=== PATIENT | female | born 1950 | race Caucasian/White ===

== ENCOUNTER 2017-04-20 19:40 | Observation (INO) | payer MEDICARE ==
[2017-04-20] MEDS ORDERED: Nitroglycerin 0.4 MG TAB (25 Tab Bottle) ONE (20:06)
[2017-04-20 20:28] LABS: #Basophils 0.1 thou/uL (0.0-0.2); #Eosinphils 0.2 thou/uL (0.0-0.7); #Lymphocytes 1.8 thou/uL (1.20-3.40); #Monocytes 0.5 thou/uL (0.11-0.59); %Basophils 1.7 % (0.0-1.0); %Eosinophils 4.6 % (0.0-10.0); %Lymphocytes 39.1 % (21.0-51.0); %Monocytes 10.7 % (0.0-10.0); Hematocrit 37.1 % (36.0-47.0); Mean Platelet Volume 6.5 fL (7.4-10.4); Red Blood Cell (RBC) Count 4.06 mill/uL (4.20-5.40); White Blood Cell (WBC) Count 4.7 thou/uL (4.8-10.8)
[2017-04-20 20:42] LABS: ALT (SGPT) 16 U/L (8-55); AST (SGOT) 16 U/L (5-34); Alkaline Phosphatase 51 U/L (40-150); Anion Gap 15 mmol/L (10-20); BUN (Urea Nitrogen) 14 mg/dL (9.8-20.1); Bilirubin, Total 0.3 mg/dL (0.2-1.2); CK (CPK) 67 U/L (29-168); Calc. Creatinine Clearance 0 mL/min (70-130); Calcium 9.3 mg/dL (7.8-10.44); Carbon Dioxide 24 mmol/L (23-31); Chloride 106 mmol/L (98-107); Estimated GFR-MDRD 60; Globulin 2.4 g/dL (2.4-3.5); Lipase 44 U/L (8-78); Protein, Total 6.5 g/dL (6.0-8.3)
[2017-04-20 20:44] LABS: Troponin I Less than 0.010 ng/mL (< 0.028)
--- NOTE | 2017-04-20 20:51 | RAD ---
AP VIEW OF THE CHEST 04/20/17 INDICATION: Chest discomfort. COMPARISON: Prior exam dated 04/19/15. IMPRESSION: No acute cardiopulmonary abnormality. The examination is not appreciably changed from the comparison dated 04/19/15. POS: [facility]
[2017-04-20 23:46] LABS: Troponin I Less than 0.010 ng/mL (< 0.028)
[2017-04-21 02:41] LABS: Troponin I Less than 0.010 ng/mL (< 0.028)
--- NOTE | 2017-04-27 15:54 | EKG ---
Test Reason : CP, ARM PAIN, JAW PA Blood Pressure : / mmHG Vent. Rate : 060 BPM Atrial Rate : 060 BPM P-R Int : 148 ms QRS Dur : 072 ms QT Int : 426 ms P-R-T Axes : 054 -09 -32 degrees QTc Int : 426 ms Sinus rhythm with sinus arrhythmia Nonspecific T wave abnormality Abnormal ECG Confirmed by REGINALD ORDOÑEZ MD ([id number]), photo editor JAYSHREE MCLAIN ([id number]) on 04/27/2017 3:54:50 PM Referred By: Confirmed By:REGINALD ORDOÑEZ MD
--- NOTE | 2017-04-27 15:55 | EKG ---
Test Reason : CP 2 Blood Pressure : / mmHG Vent. Rate : 059 BPM Atrial Rate : 059 BPM P-R Int : 168 ms QRS Dur : 074 ms QT Int : 434 ms P-R-T Axes : 065 018 -31 degrees QTc Int : 429 ms Sinus bradycardia with sinus arrhythmia Low voltage QRS T wave abnormality, consider inferior ischemia No STEMI Abnormal ECG No changes Confirmed by REGINALD ORDOÑEZ MD ([id number]), movie editor JAYSHREE MCLAIN ([id number]) on 04/27/2017 3:55:32 PM Referred By: Confirmed By:REGINALD ORDOÑEZ MD
--- NOTE | 2017-04-27 15:56 | EKG ---
Test Reason : CP 2 Blood Pressure : / mmHG Vent. Rate : 055 BPM Atrial Rate : 055 BPM P-R Int : 150 ms QRS Dur : 072 ms QT Int : 434 ms P-R-T Axes : 049 -11 -45 degrees QTc Int : 415 ms Sinus bradycardia Nonspecific T wave abnormality Abnormal ECG No changes Confirmed by SMITA BROWN, REGINALD ([id number]), tape editor JAYSHREE MCLAIN ([id number]) on 04/27/2017 3:56:31 PM Referred By: Confirmed By:REGINALD ORDOÑEZ MD
--- NOTE | 2017-04-27 15:56 | EKG ---
Test Reason : CP 2 Blood Pressure : / mmHG Vent. Rate : 058 BPM Atrial Rate : 058 BPM P-R Int : 132 ms QRS Dur : 080 ms QT Int : 420 ms P-R-T Axes : 033 -10 -45 degrees QTc Int : 412 ms Sinus bradycardia Nonspecific T wave abnormality Abnormal ECG No changes Confirmed by SMITA BROWN, REGINALD ([id number]), social media editor JAYSHREE MCLAIN ([id number]) on 04/27/2017 3:56:20 PM Referred By: Confirmed By:REGINALD ORDOÑEZ MD
== END 2017-04-21 06:38 | disposition home or self-care (01) ==
LOC: SCSER 19:40 → SCSEROBS 21:21
PROVIDERS: ADMIT Emergency Medicine; ATTEND Emergency Medicine
DX: R07.89 Other chest pain (principal); Z88.8 Allergy status to other drugs, medicaments and biological substances
CPT/HCPCS: 71010; 80053; 80061; 82550; 82553; 83690; 84484 ×3; 85025; 93005 ×2; 94760; 99285; G0378

== ENCOUNTER 2018-01-02 09:13 | Outpatient (CLI) | payer MEDICARE ==
--- NOTE | 2018-01-02 11:41 | ULT ---
THYROID ULTRASOUND: History: Thyroid nodule. Comparison: None. Technique: Sagittal and transverse imaging of the thyroid gland performed. FINDINGS: Thyroid isthmus measures 0.14 cm. Right thyroid lobe measures 3.4 x 1.4 x 1.9 cm. Left thyroid lobe m easures 1.5 x 0.5 x 0.8 cm. There is complex solid nodule in the midpole of the right thyroid lobe measuring 1.2 x 0.9 x 1.1 cm. There appears to be a central calcification measuring 0.6 x 0.6 x 0.3 cm. There is a hypoechoic lesion in the junction of the isthmus and right thyroid lobe measuring 0.6 cm. IMPRESSION: Thyroid nodule with central calcification in the right thyroid lobe. TIRADS score of TR3. Follow up shimon moreau in one year is recommended. POS: [facility]
== END 2018-01-02 09:14 | disposition home or self-care (01) ==
LOC: SCSULT 09:13
PROVIDERS: ATTEND Family Medicine
DX: E04.1 Nontoxic single thyroid nodule (principal); E07.9 Disorder of thyroid, unspecified
CPT/HCPCS: 76536

== ENCOUNTER 2018-02-12 11:01 | Day surgery (SDC) | payer MEDICARE ==
[2018-02-12] MEDS ORDERED: Sodium Bicarbonate 2.5 MEQ/5 ML VIAL ONE (11:42)
[2018-02-12] MEDS ORDERED: Lidocaine 1% PF 5 ML VIAL ONE (11:42)
[2018-02-12 15:24] VITALS: BP 135/70; TEMP 98.6
--- NOTE | 2018-02-12 16:45 | ULT ---
ULTRASOUND GUIDED THYROID FINE NEEDLE ASPIRATION RIGHT THYROID NODULE: 02/12/18 HISTORY: Nodule right lobe of the thyroid gland with calcification within the nodule. Fine needle aspiration w as requested. TECHNIQUE: After informed consent was obtained, the patient was placed on the sonography table in the supine pos ition. Limited sonographic evaluation of the right neck was performed. Nodule in the right lobe of th e thyroid gland was localized. The area was marked and meticulously prepped and draped in the usual s terile fashion. The skin and subcutaneous tissues were infiltrated with buffered 1% lidocaine for loc al anesthesia. Utilizing concurrent real time ultrasound guidance, a total of four 25 gauge fine need le aspiration specimens were obtained of the nodule in the right lobe of the thyroid gland. Hemostasis was achieved with direct pressure. Followup sonographic imaging post fine needle aspiratio n demonstrates no fluid or hematoma adjacent to the thyroid gland or in the subcutaneous soft tissues . Dry sterile dressing was placed. Patient tolerated the procedure well without immediate complication. IMPRESSION: Technically successful ultrasound guided fine needle aspiration right thyroid nodule. Pathology is cu rrently pending. POS: [facility]
== END 2018-02-12 12:55 | disposition home or self-care (01) ==
LOC: ULT 11:01
PROVIDERS: ATTEND Otolaryngology Plastic Surgery within the Head & Neck
PROC: 0G9H3ZX Drainage of Right Thyroid Gland Lobe, Percutaneous Approach, Diagnostic (ICD-10-PCS; principal; 2018-02-12)
DX: E04.1 Nontoxic single thyroid nodule (principal); J30.9 Allergic rhinitis, unspecified; J34.2 Deviated nasal septum; J34.3 Hypertrophy of nasal turbinates
CPT/HCPCS: 10022; 76942; 88173; J2001

== ENCOUNTER 2019-05-15 12:48 | Outpatient (CLI) | payer MEDICARE ==
--- NOTE | 2019-05-15 13:57 | BD ---
EXAM: DEXA bone density examination HISTORY: 68-year-old postmenopausal female for screening COMPARISON: None FINDINGS: L1--bone mineral density 0.886 g/sq cm; T score -0.9 L2--bone mineral density 0.943 g/sq cm; T score -0.8 L3--bone mineral density 1.109 g/sq cm; T score 0.2 L4--bone mineral density 1.200 g/sq cm; T score 1.3 Total L1-L4--bone mineral density 1.039 g/sq cm; T score -0.1 Left femoral neck--bone mineral density0.674; T score -1.6 Total proximal left femur--bone mineral density 0.887; T score -0.5 IMPRESSION: Osteopenia This patient has a 10 year WHO fracture risk of a major osteoporotic fracture of 9.7% and of a hip fracture of 1.2%.
--- NOTE | 2019-05-15 14:29 | MMO ---
Bilateral MAMMO Bilat Screen [facility]. CLINICAL HISTORY: Patient is 68 years old and is seen for screening. The patient has no family history of breast cancer. The patient has no personal history of cancer. VIEWS: The views performed were: bilateral craniocaudal with tomosynthesis and bilateral mediolateral oblique with tomosynthesis. FILMS COMPARED: The present examination has been compared to a prior imaging study performed at [facility] on 05/25/2015. This study has been interpreted with the assistance of computer-aided detection. MAMMOGRAM FINDINGS: There are scattered fibroglandular densities. There are stable benign appearing calcifications seen in both breasts. There are also vascular calcifications. There are no suspicious masses, suspicious calcifications, or new areas of architectural distortion. IMPRESSION: THERE IS NO MAMMOGRAPHIC EVIDENCE OF MALIGNANCY. A ROUTINE FOLLOW-UP MAMMOGRAM IN 1 YEAR IS RECOMMENDED. THE RESULTS OF THIS EXAM WERE SENT TO THE PATIENT. ACR BI-RADS Category 2 - Benign finding MAMMOGRAPHY NOTE: 1. A negative mammogram report should not delay a biopsy if a dominant of clinically suspicious mass is present. 2. Approximately 10% to 15% of breast cancers are not detected by mammography. 3. Adenosis and dense breasts may obscure an underlying neoplasm. Reported by: MARA SUTTON MD Electonically Signed: [id number]
== END 2019-05-15 12:49 | disposition home or self-care (01) ==
LOC: BICMAMMO 12:48
PROVIDERS: ATTEND Family Medicine
DX: Z12.31 Encounter for screening mammogram for malignant neoplasm of breast (principal); Z13.820 Encounter for screening for osteoporosis; M85.80 Other specified disorders of bone density and structure, unspecified site; Z78.0 Asymptomatic menopausal state
CPT/HCPCS: 77063; 77067; 77080

== ENCOUNTER 2021-05-18 10:25 | Outpatient (CLI) | payer MEDICARE | END 2021-05-18 10:26 | disposition home or self-care (01) | LOC: BICMAMMO 10:25 | PROVIDERS: ATTEND Family Medicine | DX: Z12.31 Encounter for screening mammogram for malignant neoplasm of breast (principal) | CPT/HCPCS: 77063; 77067 ==